=== PATIENT | male | born 1995 | race Caucasian/White ===

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

== ENCOUNTER 2017-02-15 22:45 | Emergency (ER) | payer OTHER ==
[~2017-02-15] VITALS: Ht 182.9 cm; Wt 74.8 kg
[2017-02-15 22:51] VITALS: BP 134/72
[2017-02-15] MEDS ORDERED: IBUPROFEN 400 MG TABLET ONE (23:33)
[2017-02-16] MEDS ORDERED: IBUPROFEN 400 MG TABLET PO ONE
== END 2017-02-15 23:39 | disposition home or self-care (01) ==
LOC: ER 22:49
DX: B08.4 Enteroviral vesicular stomatitis with exanthem (principal); J45.909 Unspecified asthma, uncomplicated
CPT/HCPCS: 99282; A4606; Z7610

== ENCOUNTER 2017-04-18 14:45 | Emergency (ER) | payer OTHER ==
[~2017-04-18] VITALS: Ht 182.9 cm; Wt 117.9 kg
--- NOTE | 2017-04-18 15:00 | NUR ---
PT PRESENTED TO THE ER WITH A C/O EPIGASTRIC PAIN. 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 PT TOOK PEDIALITE WITH NO RELIEF. PT AMBULATED TO THE BATHROOM AND A URINE SAMPLE WAS OBTAINED. PT THEN AMBULATED TO BED #2.
[2017-04-18] MEDS ORDERED: ONDANSETRON HCL/PF 4 MG/2 ML VIAL ONE (15:52)
[2017-04-18] MEDS ORDERED: IBUPROFEN 400 MG TABLET ONE (15:52)
--- NOTE | 2017-04-18 15:57 | NUR ---
PT MEDICATED ORDERED.
[2017-04-18] MEDS ORDERED: IV NS 0.9% 1,000 ML BAG IV ONE (16:00)
[2017-04-18] MEDS ORDERED: IBUPROFEN 600 MG TABLET PO ONE (16:00)
[2017-04-18] MEDS ORDERED: ONDANSETRON HCL/PF 4 MG/2 ML VIAL IVP ONE (16:00)
[2017-04-18 16:08] LABS: INR 0.9 (0.87-1.13); PROTHROMBIN TIME 9.4 SECS (9.5-12.7)
[2017-04-18 16:08] LABS: APPEARANCE,URINE CLEAR (CLEAR); BILIRUBIN,URINE 1+ (NEGATIVE); BLOOD, URINE NEGATIVE Ery/uL (NEGATIVE); COLOR,URINE YELLOW (YELLOW); KETONES,URINE 3+ (NEGATIVE); LEUKOCYTE ESTERASE ,URINE NEGATIVE (NEGATIVE); NITRITE, URINE NEGATIVE (NEGATIVE); PH,URINE 6.5 (5.0-8.0); PROTEIN,URINE NEGATIVE (NEGATIVE); UGLUCOSE NEGATIVE (NEGATIVE); UROBILINOGEN,URINE 0.2 EU/dL (0.2)
[2017-04-18 16:11] LABS: ALBUMIN 4.4 g/dL (3.4-5.0); BILIRUBIN,DIRECT 0.1 mg/dL (0.0-0.2); BILIRUBIN,TOTAL 0.4 mg/dL (0.2-1.0); CALCIUM, SERUM 9.6 mg/dL (8.5-10.1); CREATININE 0.8 mg/dL (0.6-1.3); POTASSIUM 3.8 mmol/L (3.5-5.1); TOTAL PROTEIN, SERUM 7.9 g/dL (6.4-8.2)
[2017-04-18 16:26] LABS: BASOPHILS % (AUTO) 0.2 % (0.0-2.0); EOSINOPHILS # (AUTO) 0.1 /CMM (0.0-0.7); EOSINOPHILS % (AUTO) 1.7 % (0.0-6.0); HEMATOCRIT 47 % (39-51); HEMOGLOBIN 16.1 g/dL (13.5-17.5); LYMPHOCYTES # (AUTO) 1.3 /CMM (0.8-4.8); LYMPHOCYTES % (AUTO) 19.7 % (20.0-44.0); MEAN CORPUSCULAR HEMOGLOBIN 29 PG (26.0-33.0); MEAN CORPUSCULAR HGB CONC 34 g/dl (31.0-36.0); MEAN CORPUSCULAR VOLUME 85 fL (80-96); MONOCYTES # (AUTO) 0.6 /CMM (0.1-1.30); MONOCYTES % (AUTO) 9.2 % (2.0-12.0); NEUTROPHILS # (AUTO) 4.6 /CMM (1.8-8.9); NEUTROPHILS % (AUTO) 69.2 % (43.0-81.0); PLATELET COUNT (AUTO) 353 /CMM (150-450); RDW COEFFICIENT OF VARIATION 12.8 (11.5-15.0); RED BLOOD CELL COUNT(AUTO) 5.53 MIL/uL (4.5-6.0); WHITE BLOOD COUNT (AUTO) 6.6 K/uL (4.3-11.0)
--- NOTE | 2017-04-18 16:37 | NUR ---
PT'S MOTHER IS AT THE BEDSIDE. PT STATED THAT HE IS FEELING BETTER.
[2017-04-18 16:54] LABS: RBC,URINE 0-2 /HPF (0-2)
[2017-04-18 16:55] LABS: BACTERIA,URINE Few /HPF (None Seen); SQUAMOUS EPITHELIAL CELL,UR Few /HPF (None Seen); WBC,URINE 0-2 /HPF (0-3)
--- NOTE | 2017-04-18 17:14 | NUR ---
IV removed. Catheter intact and site benign. Pressure and 4x4 applied to site. No bleeding noted.Patient discharged to home in stable condition. Written and verbal after care instructions given. Patient verbalizes understanding of instruction AND RX. PT AMBULATED OUT WITH A STEADY GAIT. VSS
[2017-04-18 17:16] VITALS: BP 119/55
== END 2017-04-18 17:17 | disposition home or self-care (01) ==
LOC: ER 14:47
DX: A08.4 Viral intestinal infection, unspecified (principal); R07.89 Other chest pain; J45.909 Unspecified asthma, uncomplicated
CPT/HCPCS: 36415; 71010; 80048; 80076; 81001; 83690; 85025; 85730; 93005; 96361; 96374; 99285; A4606; J2405; J7030; Z7610; 81000-TC

== ENCOUNTER 2018-02-13 17:34 | Emergency (ER) | payer OTHER ==
[~2018-02-13] VITALS: Ht 182.9 cm; Wt 127.0 kg
--- NOTE | 2018-02-13 17:55 | NUR ---
PATIENT TO ED DT PAIN AND BLEEDING TO UMBILICUS X 2 DAYS. UMBILICAL AREA NOTED WITH REDNESS AND SLIGHT BLEEDING. PATIENT IS AWAKE AND ALERT. AFEBRILE. VSS
[2018-02-13 18:13] LABS: BASOPHILS % (AUTO) 0.5 % (0.0-2.0); EOSINOPHILS % (AUTO) 0.4 % (0.0-6.0); HEMATOCRIT 46 % (39-51); HEMOGLOBIN 15.2 g/dL (13.5-17.5); LYMPHOCYTES # (AUTO) 1.3 /CMM (0.8-4.8); LYMPHOCYTES % (AUTO) 16.4 % (20.0-44.0); MEAN CORPUSCULAR HEMOGLOBIN 29 PG (26.0-33.0); MEAN CORPUSCULAR HGB CONC 33 g/dl (31.0-36.0); MEAN CORPUSCULAR VOLUME 86 fL (80-96); MONOCYTES # (AUTO) 0.5 /CMM (0.1-1.30); MONOCYTES % (AUTO) 6.6 % (2.0-12.0); NEUTROPHILS # (AUTO) 6.2 /CMM (1.8-8.9); NEUTROPHILS % (AUTO) 76.1 % (43.0-81.0); PLATELET COUNT (AUTO) 359 /CMM (150-450); RDW COEFFICIENT OF VARIATION 11.2 (11.5-15.0); RED BLOOD CELL COUNT(AUTO) 5.33 MIL/uL (4.5-6.0); WHITE BLOOD COUNT (AUTO) 8.1 K/uL (4.3-11.0)
[2018-02-13 18:28] LABS: CALCIUM, SERUM 9.3 mg/dL (8.5-10.1); POTASSIUM 4.2 mmol/L (3.5-5.1)
[2018-02-13] MEDS ORDERED: IV NS 0.9% 1,000 ML BAG IV ONE (18:30)
[2018-02-13 18:34] LABS: ALBUMIN 4.4 g/dL (3.4-5.0); BILIRUBIN,DIRECT 0.2 mg/dL (0.0-0.2); BILIRUBIN,TOTAL 0.8 mg/dL (0.2-1.0); TOTAL PROTEIN, SERUM 7.8 g/dL (6.4-8.2)
[2018-02-13] MEDS ORDERED: IOHEXOL-300 100 ML VIAL IV ONE (18:40)
--- NOTE | 2018-02-13 18:58 | NUR ---
PATIENT WAS TAKEN TO CT
[2018-02-13] MEDS ORDERED: CEFTRIAXONE 1 G in IV D5W 50 ML IV ONE (19:30)
[2018-02-13] MEDS ORDERED: CEFTRIAXONE 1 G VIAL ONE (19:43)
--- NOTE | 2018-02-13 20:16 | NUR ---
Patient discharged to home in stable condition. Written and verbal after care instructions given. Patient verbalizes understanding of instruction.IV removed. Catheter intact and site benign. Pressure and 4x4 applied to site. No bleeding noted. AMBULATED WITH STABLE GAIT. INSTRUCTED NOT TO DRIVE OR OPERATE HEAVY MACHINERY.
[2018-02-13 20:17] VITALS: BP 132/70
== END 2018-02-13 20:18 | disposition home or self-care (01) ==
LOC: ER 17:37
DX: L03.316 Cellulitis of umbilicus (principal); J45.909 Unspecified asthma, uncomplicated
CPT/HCPCS: 36415; 74177; 80048; 80076; 83605; 83690; 85025; 99285; A4606; J0696 ×2; J7030; J7060 ×2; Q9967; Z7610